=== PATIENT | female | born 1945 | race Caucasian/White ===

== ENCOUNTER 2023-02-24 10:48 | Inpatient (IN) | payer MEDICARE, OTHER ==
[~2023-02-24] VITALS: Ht 172.7 cm; Wt 83.9 kg
[2023-02-24] MEDS ORDERED: MAG HYDROX/AL HYDROX/SIMETH 30 ML UDC PO PRN (16:00)
[2023-02-24] MEDS ORDERED: ACETAMINOPHEN 325 MG TABLET PO PRN (16:00)
[2023-02-24] MEDS ORDERED: MAGNESIUM HYDROXIDE 30 ML UDC PO PRN (16:00)
[2023-02-24] MEDS ORDERED: ZOLPIDEM TARTRATE 5 MG TABLET PO PRN (16:00)
[2023-02-24] MEDS ORDERED: LORAZEPAM 0.5 MG TABLET PO PRN (16:00)
[2023-02-24 16:30] VITALS: BP 113/66; TEMP 98; O2SAT 99
[2023-02-24] MEDS ORDERED: QUET25TA PO (16:31)
[2023-02-24] MEDS ORDERED: OMEP20TA5 PO (16:31)
[2023-02-24] MEDS ORDERED: SODI100037 PO (16:31)
[2023-02-24] MEDS ORDERED: DIVA125C5 PO (16:31)
[2023-02-24] MEDS ORDERED: MEMA10TA PO (16:31)
[2023-02-24] MEDS ORDERED: DOCU250C14 PO (16:31)
--- NOTE | 2023-02-24 16:58 | NUR ---
female pt. adm. to rm. 212-1.very confused,oriented x1.delusional,disorganized and agitated.offered ativan 1 mg. po.
--- NOTE | 2023-02-24 17:08 | NUR ---
blood [id number],skin warm and dry,agitated,wandering around unit.thinks she going home tonight.
[2023-02-24 20:20] VITALS: BP 138/66; TEMP 97.8; O2SAT 97
--- NOTE | 2023-02-25 00:25 | NUR ---
RN NOTE:- PRN AMBIEN 5 MG PO GIVEN FOR INSOMNIA. WILL ASSESS INSOMNIA IN 1 HOUR.
[2023-02-25 08:00] VITALS: BP 155/96; TEMP 97.8; O2SAT 97
[2023-02-25] MEDS: DOCUSATE SODIUM 250 MG CAPSULE PO SCH ×2 (08:33→16:57)
[2023-02-25] MEDS: PANTOPRAZOLE 40 MG TABLET.DR PO SCH (08:33)
[2023-02-25] MEDS: SODIUM CHLORIDE 1000 MG TABLET PO SCH (08:33)
--- NOTE | 2023-02-25 09:56 | NUR ---
ADELSO Initial Discharge Note: Patient currently resides at [address] [place] [address]; ([phone]). ADELSO will contact pt's daughter Norma ([phone]) and discuss treatment and discharge plan. ADELSO will work with the MD, family, and treatment team.
--- NOTE | 2023-02-25 09:56 | NUR ---
ADELSO Clinical Note: Pt placed on a 5150 hold for GD. Per hold, pt has been agitated at home and daughter unable to care for pt. Patient currently resides at [address] [place] [address]; ([phone]). ADELSO will contact pt's daughter Norma ([phone]) and discuss treatment and discharge plan.
[2023-02-25] MEDS: DIVALPROEX SODIUM 125 MG CAP.SPRINK PO SCH ×2 (12:19→23:00)
[2023-02-25] MEDS: QUETIAPINE FUMARATE 25 MG TABLET PO SCH ×2 (12:20→23:02)
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
[2023-02-25 16:00] VITALS: BP 145/65; TEMP 97.9; O2SAT 97
[2023-02-25 20:06] VITALS: BP 149/86; TEMP 97.5; O2SAT 98
[2023-02-25] MEDS: MEMANTINE HCL 5 MG TABLET PO SCH (21:23)
--- NOTE | 2023-02-25 23:17 | NUR ---
LAB URINE Patient ambulated to the bathroom [facility] x1 assist. Voided urine, specimen collected and send to lab for test. Addendum: 02/26/23 at 0603 by JONES HUGO RN ERROR NOTES ABOVE-PLEASE DISREGARD Still needs urine as not able to call lab for order picker/assembler.
[2023-02-26 06:51] LABS: BASOPHILS % (AUTO) 0.5 % (0.0-2.0); EOSINOPHILS % (AUTO) 2.1 % (0.0-6.0); HEMATOCRIT 40 % (33-45); HEMOGLOBIN 13.7 g/dL (11.5-14.8); LYMPHOCYTES # (AUTO) 2.5 K/uL (0.8-4.8); LYMPHOCYTES % (AUTO) 42.8 % (20.0-44.0); MEAN CORPUSCULAR HGB CONC 34 g/dl (31.0-36.0); MEAN CORPUSCULAR VOLUME 91 fL (82-100); MONOCYTES # (AUTO) 0.6 K/uL (0.1-1.30); MONOCYTES % (AUTO) 10.2 % (2.0-12.0); NEUTROPHILS # (AUTO) 2.6 K/uL (1.8-8.9); NEUTROPHILS % (AUTO) 44.4 % (43.0-81.0); PLATELET COUNT (AUTO) 187 K/uL (150-450); RED BLOOD CELL COUNT(AUTO) 4.36 MIL/uL (4.0-5.2); WHITE BLOOD COUNT (AUTO) 5.8 K/uL (4.3-11.0)
[2023-02-26 07:06] LABS: CALCIUM, SERUM 8.9 mg/dL (8.5-10.1); CARBON DIOXIDE 23 mmol/L (21-32); CHLORIDE 96 mmol/L (98-107); CREATININE 0.4 mg/dL (0.6-1.3); GLUCOSE 102 mg/dL (74-106); PHOSPHORUS 3.5 mg/dL (2.5-4.9); POTASSIUM 4.5 mmol/L (3.5-5.1); SODIUM SERUM 126 mmol/L (136-145); UREA NITROGEN, BLOOD 11 mg/dL (7-18)
[2023-02-26 08:00] VITALS: BP 131/59; TEMP 97.7; O2SAT 98
[2023-02-26] MEDS: PANTOPRAZOLE 40 MG TABLET.DR PO SCH (08:15)
[2023-02-26] MEDS: DOCUSATE SODIUM 250 MG CAPSULE PO SCH ×2 (08:36→16:12)
[2023-02-26] MEDS: SODIUM CHLORIDE 1000 MG TABLET PO SCH (08:36)
[2023-02-26] MEDS: DIVALPROEX SODIUM 125 MG CAP.SPRINK PO SCH ×2 (08:36→21:13)
[2023-02-26] MEDS: QUETIAPINE FUMARATE 25 MG TABLET PO SCH ×2 (08:36→21:14)
--- NOTE | 2023-02-26 10:35 | NUR ---
RN-NOTES DR. GONZALEZ SEEN THE PATIENT IN THE UNIT WITH VERBAL ORDER OF UA AND C&S NOTED AND CARRIED OUT.
[2023-02-26 12:02] LABS: BILIRUBIN,URINE NEGATIVE (NEGATIVE); COLOR,URINE YELLOW (YELLOW); LEUKOCYTE ESTERASE ,URINE NEGATIVE (NEGATIVE); NITRITE, URINE NEGATIVE (NEGATIVE); PH,URINE 6.5 (5.0-8.0); PROTEIN,URINE NEGATIVE (NEGATIVE); UGLUCOSE NEGATIVE (NEGATIVE)
[2023-02-26 16:00] VITALS: BP 162/87; TEMP 98.1; O2SAT 96
[2023-02-26 20:00] VITALS: BP 135/58; TEMP 98.2; O2SAT 97
--- NOTE | 2023-02-26 20:09 | NUR ---
GRADES 7 8 TUTOR NOTE:RECEIVED PATIENT IN BED AWAKE TALKING WITH HER DAUGHTER AT BED SIDE.ALERT AND ORIENTED X1.BREATHING EVEN AND NON-LABORED.NO S/S OF DISTRESS.PATIENT IS CONFUSED ,DISORIENTED,GUARDED AND FORGETFUL,NEEDS REDIRECTION ,AMBULATORY WITH WALKER.NEED ASSISTANCE GOING TO THE BATHROOM.NO C/O PAIN AT THIS TIME.PATIENT ASSISTED ON TURNING AND REPOSITIONING Q2H OR PRN.ALL NEEDS ATTENDED TO.BED IN LOWEST,LOCKED POSITION WITH SIDE RAILS UP X2.WILL CONTINUE TO MONITOR Q15 MINS WITH THE HELP OF STAFF.
[2023-02-26] MEDS: MEMANTINE HCL 5 MG TABLET PO SCH (21:13)
[2023-02-27 08:00] VITALS: BP 112/59; TEMP 97.7; O2SAT 96
[2023-02-27] MEDS: PANTOPRAZOLE 40 MG TABLET.DR PO SCH (08:10)
[2023-02-27] MEDS: DIVALPROEX SODIUM 125 MG CAP.SPRINK PO SCH (08:10)
[2023-02-27] MEDS: QUETIAPINE FUMARATE 25 MG TABLET PO SCH (08:10)
[2023-02-27] MEDS: SODIUM CHLORIDE 1000 MG TABLET PO SCH (08:10)
[2023-02-27] MEDS: DOCUSATE SODIUM 250 MG CAPSULE PO SCH (08:10)
--- NOTE | 2023-02-27 09:48 | NUR ---
ADELSO FAMILY CONTACT: ADELSO received a call from secondary DPOA daughter Amelia ([phone]) who is insisting on pt to be discharged AMA and stated that primary DPOA daughter Norma ([phone]) is agreeable of this. They are in denial of pt's mental status. ADELSO contacted pt's sister Norma ([phone]) and notified of sister Amelia's concern and ADELSO explained pt will be discharged AMA and she was agreeable of this. She stated that she will garbage pick up man pt and will call this filing writer back to confirm the status.
--- NOTE | 2023-02-27 10:38 | NUR ---
SW Discharge Note: Patient will discharge AMA. Patient will discharge back home located at [address], [place] [address]; ([phone]). Patient's daughter Norma PHAM ([phone]) will car pick up driver pt at 1:30PM. Patient is alert and oriented x1 (self). Patient happy to be going back home. Patient denies suicidal or homicidal ideation. Patient happy to be going back home. Patient denies suicidal or homicidal ideation. Patient denies visual/auditory hallucinations. Patient given resource to [facility] located at [address], [place] [address]; ([phone]). Patient referred to [facility] located at [address] [place] [id number]; ([phone]). Patient presents with euthymic mood and congruent affect.
--- NOTE | 2023-02-27 15:40 | NUR ---
RN-DISCHARGE NOTES PATIENT WAS DISCHARGE AMA BY ( PSYCHIATRIST) DR. GOTTLIEB WAS MADE AWARE. PATIENT WAS DISCHARGE HOME WITH DAUGHTER ALEXANDRA NATION. PATIENT LEFT THE UNIT IN STABLE CONDITION A/O X1 WITH SKIN INTACT.PATIENT AMBULATES WITH WALKER WITH SUPERVISION, NO ACUTE DISTRESS NOTED. PATIENT DID NOT VERBALIZE SI/HI DENIES VISUAL/AUDITORY HALLUCINATIONS AT THE THE OF DISCHARGE. ALL BELONGINGS WAS GIVEN BACK TO THE PATIENT. INSTRUCTED PATIENT TO CALL 911 OR GO TO THE NEAREST EMERGENCY ROOM INCASE OF EMERGENCY. TILE CLASSIFIER BY AARON MORRIS ,ALL BELONGINGS WAS ENDORSE AND GIVEN TO THE DTR. VITALS : BP 127/84,PULSE 69,RESP. 18 TEMP. 98.O AND O2 SAT . OF 99% RA. PATIENT WAS WHEELED DOWN IN THE LOBBY BY ONE DINING ROOM ATTENDANT STAFF FOR SAFETY.
[2023-02-27 15:50] VITALS: BP 147/84; TEMP 98; O2SAT 99
== END 2023-02-27 15:40 | disposition left against medical advice (07) | DRG 885 ==
LOC: GPS 15:44
PROVIDERS: ADMIT Psychiatry & Neurology Psychiatry; ATTEND Internal Medicine
DX: F31.64 Bipolar disorder, current episode mixed, severe, with psychotic features (principal); E22.2 Syndrome of inappropriate secretion of antidiuretic hormone; F03.918 Unspecified dementia, unspecified severity, with other behavioral disturbance; F03.94 Unspecified dementia, unspecified severity, with anxiety; F03.92 Unspecified dementia, unspecified severity, with psychotic disturbance; F29 Unspecified psychosis not due to a substance or known physiological condition; F41.9 Anxiety disorder, unspecified; Z73.6 Limitation of activities due to disability; M62.81 Muscle weakness (generalized)
CPT/HCPCS: 36415; 80048-TC; 82962-TC; 83735-TC; 84100-TC; 84300-TC; 85025-TC; 87086-TC; 92526; 92611-TC